=== PATIENT | female | born 1955 | race Caucasian/White ===

== ENCOUNTER 2023-07-09 10:53 | Emergency (ER) | payer MEDICARE, OTHER ==
[2023-07-09] MEDS ORDERED: Benzonatate 100 MG CAP ONE (11:28)
[2023-07-09 12:17] LABS: SARS-CoV-2 NAA Rapid Test Not Detected (NotDetected)
== END 2023-07-09 12:45 | disposition home or self-care (01) ==
LOC: NAV ERS 10:53
DX: J10.1 Influenza due to other identified influenza virus with other respiratory manifestations (principal); I10 Essential (primary) hypertension; E78.00 Pure hypercholesterolemia, unspecified; K21.9 Gastro-esophageal reflux disease without esophagitis; Z20.822 Contact with and (suspected) exposure to COVID-19; Z79.84 Long term (current) use of oral hypoglycemic drugs; Z79.82 Long term (current) use of aspirin; Z79.899 Other long term (current) drug therapy
CPT/HCPCS: 71045

== ENCOUNTER 2024-06-29 19:14 | Emergency (ER) | payer MEDICARE, OTHER ==
[~2024-06-29 19:14] MED LIST: Iopamidol 370 76% 100 ML VIAL ONE
[2024-06-29] MEDS ORDERED: Ondansetron PF 4 MG/2 ML Vial ONE (20:03)
[2024-06-29] MEDS ORDERED: Pantoprazole 40 MG VIAL ONE (20:03)
[2024-06-29] MEDS ORDERED: fentaNYL 50 mcg/mL 1 mL Vial ONE ×3 (20:03→23:08)
[2024-06-29 20:42] LABS: #Basophils 0.1 thou/uL (0.0-0.2); #Eosinophils 0.1 thou/uL (0.0-0.7); #Lymphocytes 2.3 thou/uL (1.20-3.40); #Monocytes 0.8 thou/uL (0.11-0.59); #Neutrophils 9.5 thou/uL (1.40-6.50); %Basophils 0.6 % (0.0-1.0); %Lymphocytes 17.9 % (21.0-51.0); %Monocytes 6.2 % (0.0-10.0); %Neutrophils 74.2 % (42.0-75.0); Hematocrit 41.1 % (36.0-47.0); Hemoglobin 13.9 g/dL (12.0-16.0); Mean Corpuscular HGB CONC 33.7 g/dL (32.0-36.0); Mean Corpuscular Hemoglobin 28.9 pg (27.0-31.0); Mean Corpuscular Volume 85.9 fl (78.0-98.0); Mean Platelet Volume 7.7 fL (7.4-10.4); Platelet Count 366 10x3/uL (130-400); RBC Distribution Width 11.8 % (11.5-14.5); Red Blood Cell (RBC) Count 4.79 mill/uL (4.20-5.40); White Blood Cell (WBC) Count 12.8 10x3/uL (4.8-10.8)
[2024-06-29 20:44] LABS: Bilirubin Small (Negative); Blood, Urine Trace (Negative); Glucose, Urine (Dipstick) Negative (Negative); Ketone, Urine > or equal to 80 mg/dL (Negative); Leukocyte Negative (Negative); Nitrite Negative (Negative); Protein, Urine (Dipstick) 100 mg/dL (Neg-Trace); Urobilinogen 0.2 mg/dL (Less than 2); pH, Urine 7.5 (5.0-9.0)
[2024-06-29 20:45] LABS: Clarity Slightly Cloudy (Clear)
[2024-06-29 20:59] LABS: Bacteria/HPF Rare-Few HPF (None Seen); CAUTI Indications for Culture Dysuria,urgency,freq; WBC/HPF 0-3 HPF (0-3)
[2024-06-29 21:00] LABS: Urine Culture Reflex No No
[2024-06-29 21:02] LABS: ALT (SGPT) 29 U/L (8-55); AST (SGOT) 22 U/L (5-34); Albumin 4.2 g/dL (3.4-4.8); Alkaline Phosphatase 55 U/L (40-110); Anion Gap 19 mmol/L (10-20); BUN (Urea Nitrogen) 6 mg/dL (9.8-20.1); Bilirubin, Total 0.7 mg/dL (0.2-1.2); Calc. Creatinine Clearance 0 mL/min (70-130); Calcium 10.1 mg/dL (7.8-10.44); Carbon Dioxide 21 mmol/L (23-31); Chloride 88 mmol/L (98-107); Estimated GFR 93; Globulin 3.1 g/dL (2.4-3.5); Glucose 109 mg/dL (80-115); Lipase 55 U/L (8-78); Potassium 4.4 mmol/L (3.5-5.1); Protein, Total 7.3 g/dL (5.8-8.1); Sodium 124 mmol/L (136-145)
[2024-06-29 21:07] LABS: Troponin I Less than 0.010 ng/mL (< 0.028)
[2024-06-29] MEDS ORDERED: Metoprolol Tartrate 5 MG (5 mL) VIAL ONE (23:33)
[2024-06-30] MEDS ORDERED: Metoprolol Tartrate 5 MG (5 mL) VIAL ONE (00:11)
[2024-06-30] MEDS ORDERED: fentaNYL 50 mcg/mL 1 mL Vial ONE (01:04)
== END 2024-06-30 01:30 | disposition short-term general hospital (02) ==
LOC: NAV ERS 19:14
DX: K85.90 Acute pancreatitis without necrosis or infection, unspecified (principal); I10 Essential (primary) hypertension; E78.00 Pure hypercholesterolemia, unspecified; K21.9 Gastro-esophageal reflux disease without esophagitis; Z79.899 Other long term (current) drug therapy; Z79.82 Long term (current) use of aspirin
CPT/HCPCS: 71045; 74177; 80053; 81001; 83690; 84484; 85025; 93005; J2405; J2470; J3010 ×2; 96374; 96375; 96376; Q9967